=== PATIENT | male | born 2000 | race Caucasian/White ===

== ENCOUNTER 2025-02-27 14:35 | Emergency (ER) | payer MEDICAID ==
[~2025-02-27] VITALS: Ht 170.2 cm; Wt 85.3 kg
[2025-02-27 14:42] VITALS: BP 129/76; PULSE 71; RESP 16; O2SAT 99
[2025-02-27] MEDS: LIDOcaine 1% W/epiNEPHrine 1:100,000 20ml vial IJ ONE (16:34)
[2025-02-27] MEDS ORDERED: SULF1TAB49 PO (17:35)
--- NOTE | 2025-02-27 17:37 | Physician Documentation ---
History of Present Illness ~ Chief Complaint: Abscess Stated Complaint: NECK PAIN Time Seen by MD: 15:20 Primary Medical Doctor: [facility] Source: patient Mode of Arrival: POV Exam Limitations: no limitations HPI 24-year-old male with chief complaint swollen painful area on the left side of his neck [id number]. He states it started out just as an area of swelling with minimal pain but over the past week it started to become progressively more painful. He has never had anything like this before. He denies any dental pain, pain with swallowing, pain in his ear. He states it feels like a very large pimple. Tetanus Within 5 Years: No Medication Reconciliation Allergies: Coded Allergies: No Known Allergies (Unverified , 02/27/25) Scheduled Sulfamethoxazole/Trimethoprim (Bactrim Ds Tablet), 1 TAB PO Q12H Past Medical History Past Medical History: No Pertinent History Review of Systems All Other Systems at this time: Reviewed and Negative Physical Exam Vital Signs: Temperature: 98.3, Source: Temporal, Heart Rate: 71, Respiratory Rate: 16, BP: 129/76, Pulse Oximetry: 99, Weight: 85.300 Oxygen Flow Rate: 0 Physical Exam General Appearance: Alert, WD/WN. NAD. HEENT: NCAT, PERRL, EOMI. Left side of neck there is a subcutaneous well defined erythematous mass that is tender to palpation in the center there is an area of fluctuance with a pustule that appears to surround a hair follicle. Posterior pharyngeal wall normal. NTTP over left lower molars or gingiva. Neck: Supple, trachea midline. Left anterior cervical LAD. No other cervical LAD. Cardiovascular: RRR. No m/r/g. Lungs: CTAB. Breathing unlabored Extremities: Normal inspection. No edema. Skin: Warm/dry, normal color Neurological: Alert and oriented x4, normal gait. Psychiatric: Affect congruent with mood. Procedures I & D Procedure : Site: left neck Anesthesia: Lidocaine w/ Epi Volume Anesthetic (mls): 5 Blade Size: 11 Prep/Supplies: irrigated, packing placed Incision: pus drained, blood drained Tolerated Procedure Well?: yes, no complications Progress Results/Orders Results/Orders Orders - TOBY PRESSLEY Cult (Aer) Routine C&S+Gram St (02/27/25 16:21) Laceration/I&D Tray Set Up (02/27/25 16:21) Completed Orders - TOBY PRESSLEY Lidocaine 1% W/Epi 1:100,000 (Xylocaine (02/27/25 16:25) Sulfamethox/Trimetho. Ds Tab (Septra Ds (02/27/25 17:40) Medications Received in ER Medications (Trade) Dose Ordered Sig/Sneha Route PRN Reason Start Time Stop Time Status Last Admin Dose Admin (Septra DS tab) 1 tab ONCE ONCE PO 02/27/25 17:40 02/27/25 17:44 DC 02/27/25 17:50 1 TAB Vital Signs 02/27/25 02/27/25 14:42 18:08 Temp 98.3 98.3 Pulse 71 Resp 16 B/P (MAP) 129/76 Pulse Ox 99 O2 Flow Rate 0 Medical Decision Making Differential Dx:Considerations: Include: Abscess, Bacteremia, Cellulitis, Erysipelas, Felon, Gas gangrene, Hidrademitis suppurativa, Impetigo, Lymph angitis, Osteromyelitis, Paronychia, Septicemia, Other Departure Time of Disposition: 17:36 Disposition: 01 HOME / SELF CARE / HOMELESS Impression: Primary Impression: Abscess Condition: Stable Discharge Instructions: Skin Abscess, [id number] Additional Instructions: antibiotics remove packing in 48hours if packing falls out prior, that is okay if fever, chills, increasing pain or any other concerning symptoms return to ER immediately Departure Forms: Excuse form Work or School Excused From: Work Excuse beginning now through the following date: Mar 01, 2025 May Return but still avoid physical Activity from now until: Mar 02, 2025 Referrals: NO PRIMARY CARE PROVIDER (PCP) Prescriptions Sulfamethoxazole/Trimethoprim (Bactrim Ds Tablet) 800 Mg-160 Mg Tablet 1 TAB PO Q12H for 10 Days, #20 TAB Prov: TOBY PRESSLEY 02/27/25 Education Educated: Patient Educated regarding: diagnosis, treatment, need for follow up Signature Scribe Signature: x Attestation: TOBY Reeves Feb 27, 2025 17:37
[2025-02-27] MEDS: sulfamethoxazole/trimethoprim DS (800/160mg) tablet PO ONE (17:50)
[2025-02-27 18:08] VITALS: TEMP 98.3
== END 2025-02-27 18:10 | disposition home or self-care (01) ==
LOC: ER 14:36
DX: L02.11 Cutaneous abscess of neck (principal); Z79.899 Other long term (current) drug therapy
CPT/HCPCS: 10060; 87070; 99283; A6407; A6258; A6449

== ENCOUNTER 2025-03-02 16:33 | Emergency (ER) | payer MEDICAID ==
[~2025-03-02] VITALS: Ht 170.2 cm; Wt 81.8 kg
[~2025-03-02 16:33] MED LIST: SULF1TAB49 PO
[2025-03-02 16:57] VITALS: TEMP 98.6
--- NOTE | 2025-03-02 17:34 | Physician Documentation ---
History of Present Illness ~ Chief Complaint: Wound Re-Check Stated Complaint: NECK ABCESS Time Seen by MD: 17:23 Primary Medical Doctor: [facility] HPI Patient is seen today with complaints of wound check after I and D of an abscess of the left side of his neck. Patient states this occurred few days ago and it is already feeling so much better and has decreased in size significantly. Patient states he is taking the antibiotic as prescribed. He has no other concern or complaint at this time. Tetanus within 5 years?: No Medication Reconciliation Allergies: Coded Allergies: No Known Allergies (Unverified , 03/02/25) Scheduled Sulfamethoxazole/Trimethoprim (Bactrim Ds Tablet), 1 TAB PO Q12H Past Medical History Past Medical History: No Pertinent History Review of Systems Constitutional: Denies: chills, fever, weakness Eyes: Denies: pain, blurred vision ENT: Denies: ear pain, nose pain, throat pain, mouth pain Respiratory: Denies: cough, shortness of breath Cardiovascular: Denies: chest pain, palpitations Gastrointestinal: Denies: abdominal pain, nausea, vomiting Genitourinary: Denies: burning, dysuria Male Genitalia: Denies: penile discharge, testicular pain Neurological: Denies: headache, dizziness Musculoskeletal: Denies: pain, swelling Integumentary: Denies: rash, lesions Allergic/Immunologic: Denies: hives, itching Hematologic/Lymphatic: Denies: no symptoms reported Psychiatric: Denies: depression, anxiety Physical Exam Vital Signs: Temperature: 98.6, Heart Rate: 75, Respiratory Rate: 19, BP: 123/78, Pulse Oximetry: 99, Weight: 81.800 Oxygen Flow Rate: 0 Physical Exam General: Awake and Alert, no acute distress. HEENT: Conjunctiva pink, Sclera clear, Mucus Membranes moist. Neck: Patient on exam does have mild erythema and palpable mass in the left side of his neck just inferior to the mandible or angle of the jaw. Patient does have open draining lesion at that site. I do not appreciate any fluctuant mass at this time. Firm mass measures a proximally 3-1/2 cm in diameter. Resp: Unlabored. Lungs clear to auscultation bilaterally. Extremities: No cyanosis,clubbing or edema. Skin: Warm and Dry. Progress Results/Orders Results/Orders Vital Signs 03/02/25 16:57 Temp 98.6 Pulse 75 Resp 19 B/P (MAP) 123/78 Pulse Ox 99 O2 Flow Rate 0 Medical Decision Making Findings Patient is seen today with complaints of wound check after I and D of an abscess of the left side of his neck. Patient states this occurred few days ago and it is already feeling so much better and has decreased in size significantly. Patient states he is taking the antibiotic as prescribed. He has no other concern or complaint at this time. Patient will continue oral antibiotics and will continue warm compress twice a day and continue daily dressing changes. Patient will return to ED in 7-10 days for wound check if needed. Follow up with primary care in 3-5 days if no better as needed sooner. Return to ED with any worsening, concerning or changing symptoms. Departure Disposition: HOME / SELF CARE / HOMELESS Impression: Primary Impression: Abscess Condition: Improved Discharge Instructions: Abscess, Care After Additional Instructions: Patient will continue oral antibiotics and will continue warm compress twice a day and continue daily dressing changes. Patient will return to ED in 7-10 days for wound check if needed. Follow up with primary care in 3-5 days if no better as needed sooner. Return to ED with any worsening, concerning or changing symptoms. Referrals: NO PRIMARY CARE PROVIDER (PCP) Signature Scribe Signature: No scribe Attestation: No scribe HUYEN RYAN PAC Mar 02, 2025 17:34
[2025-03-02 17:55] VITALS: BP 111/79; PULSE 75; RESP 15; O2SAT 99
== END 2025-03-02 18:02 | disposition home or self-care (01) ==
LOC: ER 16:33
DX: L02.11 Cutaneous abscess of neck (principal)
CPT/HCPCS: 99281